=== PATIENT | male | born 2000 | race Caucasian/White ===

== ENCOUNTER 2020-07-11 07:05 | Inpatient (IN) | payer OTHER ==
[~2020-07-11] VITALS: Ht 170.2 cm; Wt 73.3 kg
[2020-07-11 09:21] LABS: HEMATOCRIT 41.1 % (42.0-52.0); HEMOGLOBIN 14.7 g/dl (13.5-17.5); MEAN CORPUSCULAR HEMOGLOBIN 31.3 pg (27.0-33.0); MEAN CORPUSCULAR HGB CONC 35.8 g/dl (32.0-36.5); MEAN CORPUSCULAR VOLUME 87.4 fl (80.0-96.0); PLATELET COUNT, AUTOMATED 292 10^3/uL (150-450); WHITE BLOOD COUNT 7.1 10^3/uL (4.0-10.0)
[2020-07-11 09:47] LABS: ACETAMINOPHEN LEVEL < 2.0 UG/ML (10.0-30.0); ALBUMIN 4.1 GM/DL (3.2-5.2); ALT/SGPT 24 U/L (12-78); BILIRUBIN,DIRECT 0.2 MG/DL (0.0-0.2); BILIRUBIN,TOTAL 0.6 MG/DL (0.2-1.0); BLOOD UREA NITROGEN 11 MG/DL (7-18); CALCIUM LEVEL 8.9 MG/DL (8.5-10.1); CARBON DIOXIDE LEVEL 29 MEQ/L (21-32); CHLORIDE LEVEL 109 MEQ/L (98-107); CREATININE FOR GFR 0.86 MG/DL (0.70-1.30); ETHYL ALCOHOL (ETHANOL) < 0.003 % (0.000-0.010); GLUCOSE, FASTING 83 MG/DL (70-100); POTASSIUM SERUM 4.5 MEQ/L (3.5-5.1); SALICYLATE LEVEL < 1.7 MG/DL (5.0-30.0); SODIUM LEVEL 142 MEQ/L (136-145); TOTAL PROTEIN 6.8 GM/DL (6.4-8.2)
[2020-07-11 09:56] LABS: AMPHETAMINES LEVEL URINE NEGATIVE (NEGATIVE); BARBITURATES URINE NEGATIVE (NEGATIVE); BENZODIAZEPINES URINE NEGATIVE (NEGATIVE); CANNABINOIDS URINE NEGATIVE (NEGATIVE); COCAINE METABOLITE URINE NEGATIVE (NEGATIVE); METHADONE URINE NEGATIVE (NEGATIVE); OPIATES URINE NEGATIVE (NEGATIVE); PHENCYCLIDINE URINE NEGATIVE (NEGATIVE)
[2020-07-11] MEDS ORDERED: traZODone 50 MG TAB PO PRN (14:00)
[2020-07-11] MEDS ORDERED: ACETAMINOPHEN TAB 650MG DOSE (2X325MG) PO PRN (14:00)
[2020-07-11] MEDS ORDERED: MAALOX 30 ML SUSP *UDC PO PRN (14:00)
[2020-07-11 17:19] VITALS: BP 115/63
[2020-07-12 06:40] VITALS: BP 114/55
--- NOTE | 2020-07-12 08:18 | MHHPEPDOC ---
[facility] History & Physical History and Physical DATE OF ADMISSION: Jul 11, 2020 at 13:54 HPI: Thomas presents today for concerns regarding his panic attacks. He noted that this was his first severe panic attack but has had others in the past. Thomas noted that this is his first time in an inpatient unit. He complains of anxiety attacks with no specific triggers. He states that he has had anxiety since he was 12 but has never brought it up because he feels that he has a good handle on it. He also complains that he has had depression in the past for weeks at a time as well as an upswing of depression. Thomas noted that he had a period of time about 5 months ago where he was energized and did things that we wouldn't otherwise do. He also noted that there are times when he does not sleep but is energized and is impulsive. The longest time with this was 2 weeks. He noted that he used to hear voices from age 12 to age 17. Thomas denies suicidal thoughts but has had suicidal attempts when he was 12-13 years old. MEDICAL HISTORY: Thomas denies any previous mental health treatment. FAMILY HISTORY: He noted that his mother has a history of bipolar depression and issues with anxiety. 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 SOCIAL HISTORY - SMOKING: He uses tobacco. Objective Appearance: Good hygiene. Affect: Midly flat, constricted. Speech: Spontaneous and Fluid. Cognition: Grossly intact. Thought Form: Linear. Logical. No signs of psychosis or other concerning though processes. Denies suicidal or homicidal ideation. Judgement: Fair. Insight: Fair. Assessment F31.9 Bipolar disorder, unspecified Plan Start Abilify 2 mg nightly. Priorities are risk for suicide to an ineffective coping plan. Estimated length of stay is 3-5 days. Vital Signs Vital Signs Date Time Temp Pulse Resp B/P (MAP) Pulse Ox O2 Delivery O2 Flow Rate FiO2 07/12/20 06:40 98.2 62 18 114/55 (74) 100 Room Air Laboratory Data 24H Labs Laboratory Tests 2 07/11/20 08:50: Nucleated Red Blood Cells % (auto) 0.0, Anion Gap 4L, Calcium Level 8.9, Total Bilirubin 0.6, Direct Bilirubin 0.2, Aspartate Amino Transf (AST/SGOT) 16, Alanine Aminotransferase (ALT/SGPT) 24, Alkaline Phosphatase 83, Total Protein 6.8, Albumin 4.1, Albumin/Globulin Ratio 1.5, Thyroid Stimulating Hormone (TSH) 2.000, Salicylates Level < 1.7L, Acetaminophen Level < 2.0L, Ethyl Alcohol Level < 0.003 07/11/20 09:05: Urine Opiates Screen NEGATIVE, Urine Methadone Screen NEGATIVE, Urine Barbiturates Screen NEGATIVE, Urine Phencyclidine Screen NEGATIVE, Urine Amphetamines Screen NEGATIVE, Urine Benzodiazepines Screen NEGATIVE, Urine Cocaine Metabolite Screen NEGATIVE, Urine Cannabinoids Screen NEGATIVE CBC/BMP Laboratory Tests 07/11/20 08:50 Medications No Active Prescriptions or Reported Meds Allergies Coded Allergies: No Known Allergies (Unverified , 07/11/20) A-FIB/CHADSVASC A-FIB History Current/History of A-Fib/PAF?: No LEONARDO ISAACS DO Jul 12, 2020 08:18
--- NOTE | 2020-07-12 16:18 | HPEPDOC ---
General Date of Admission Jul 11, 2020 at 13:54 Date of Service: Jul 12, 2020 Chief Complaint The patient is a 19-year-old male admitted with a reason for visit of Depressive Disorder. 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 I am seeing the patient for medical history and physical. He complains of having depression since the age of 12 years but never told anyone. He used to cut himself when he was younger. This time he has been feeling more and more depressed for the past few months , no interest in anything and he felt that he could start cutting himself again if he did not seek help. Home Medications No Active Prescriptions or Reported Meds Allergies Coded Allergies: No Known Allergies (Unverified , 07/11/20) Past Medical History Medical History none Family History Significant Family History: Heart disease (paternal grand father) Social History * Smoker: current smoker Alcohol: Denies Drugs: denies A-FIB/CHADSVASC A-FIB History Current/History of A-Fib/PAF?: No Review of Systems Constitutional: Denies: Chills, Fever, Night Sweats Eyes: Denies: Pain, Vision change ENT: Denies: Head Aches, Ear Pain, Dysphagia Skin: Denies: Rash, Lesions, Breakdown Pulmonary: Denies: Dyspnea, Cough Gastrointestinal: Denies: Nausea, Vomiting, Abdominal Pain, Diarrhea Genitourinary: Denies: Dysuria, Frequency, Incontinence, Retention Hematologic: Denies: Bruising, Bleeding Excessively Physical Examination General Exam: Positive: Alert, Cooperative, No Acute Distress Eye Exam: Positive: PERRLA, Conjunctiva & lids normal, EOMI; Negative: Sclera icteric ENT Exam: Positive: Atraumatic, Mucous membr. moist/pink, Pharynx Normal Neck Exam: Positive: Supple; Negative: JVD, thyromegaly Chest Exam: Positive: Clear to auscultation, Normal air movement Heart Exam: Positive: Rate Normal, Regular Rhythm, Normal S1, Normal S2; Negative: Murmurs, Rubs Abdomen Exam: Positive: Normal bowel sounds, Soft; Negative: Tenderness, Hepatospenomegaly Extremity Exam: Positive: Normal pulses; Negative: Clubbing, Cyanosis, Edema Skin Exam: Positive: Nl turgor and temperature; Negative: Breakdown, Lesion Vital Signs Vital Signs Date Time Temp Pulse Resp B/P (MAP) Pulse Ox O2 Delivery O2 Flow Rate FiO2 07/12/20 06:40 98.2 62 18 114/55 (74) 100 Room Air Assessment/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 I am seeing the patient for medical history and physical. Depression as per psychiatry No active medical issues will sign off. Plan / VTE VTE Prophylaxis Ordered?: No MIRANDA BURKS MD Jul 12, 2020 16:18
[2020-07-12 16:57] VITALS: BP_SYST 118; BP_SYST 138; BP_DIAS 63; BP_DIAS 73
[2020-07-12] MEDS: ARIPiprazole 2 MG TAB PO SCH (21:30)
[2020-07-13 06:35] VITALS: BP 116/55
[2020-07-13] MEDS: ARIPiprazole 2 MG TAB PO SCH (19:58)
[2020-07-14 06:35] VITALS: BP 125/60
[2020-07-14] MEDS ORDERED: NICOTINE 14 MG/24 HR TRANSDERMAL TD PRN (16:45)
[2020-07-14 18:30] VITALS: BP 116/63
[2020-07-14] MEDS: ARIPiprazole 2 MG TAB PO SCH (20:10)
[2020-07-15 06:27] VITALS: BP 143/73
--- NOTE | 2020-07-15 07:43 | MHDSPDOC ---
[facility] Discharge Summary Discharge Summary DATE OF ADMISSION: Jul 11, 2020 at 13:54 DATE OF DISCHARGE: Jul 15, 2020 at 13:00 DISCHARGE DIAGNOSES: F31.89 Other bipolar disorder CONSULTANTS INVOLVED:[ None (basic hospitalist screening)] REASON FOR ADMISSION & TREATMENT AND PROGRESS ON THE UNIT : Thomas was admitted to the inpatient mental health unit after presenting to the emergency room with significant depressive episodes. When he was admitted to the inpatient unit, Susan initial assessment showed that the patient suffered from a potential bipolar disorder. He has improved since being admitted into the inpatient mental health unit and was discharged at his request. Thomas was a voluntary admission. MEDICATIONS: Thomas was placed on Abilify as this would be a good treatment for both depression and bipolar. He responded favorably to 2 mg of Abilify. Thomas was well engaged, generally pleasant without any behavioral problems. DISCHARGE ASSESSMENT[improved] Legal status considerations: The patient at the time of discharge did not meet criteria for involuntary admission/extension due to having a [normal] mental status exam, [fair] insight into the situation, They are engaged in the discharge process, as well as being friendly and amenable in behavioral control and havent been engaging in any observed concerning behavior or ideation recently. They decline voluntary extension/admission at this time and must be discharged in good jose, as Im unable to make a case for holding the patient against their will. They may have historical risk factors of admissions and other interactions with psychiatry however, those are not modifiable from a clinical perspective. The patient will need to be discharged in good jose. At the time of this discharge summary, the notes from the previous weekend were not made available to this provider. MENTAL STATUS EXAMINATION ON DISCHARGE: [General: Well dressed with good hygiene Speech: Spontaneous and fluid Thought processes: Linear and logical Thought content: Future orientated Abstract reasoning, and computation: Intact Description of associations: Intact Description of abnormal or psychotic thoughts:Denies any suicidal or homicidal ideation. Denies any auditory or visual hallucinations. Does not appear to be responding to internal stimuli. Does not appear to be endorsing any bizarre or paranoid ideation. Judgment: fair Insight: fair Orientation: Alert and orientated 3 Recent and remote memory: Intact Attention span and concentration: Intact Fund of knowledge: Adequate Mood: "okay" Affect: Euthymic with a full range] PLAN/FOLLOWUP ARRANGEMENTS: Follow up appointments made (PCP and MH in 5 days of D/C date) and safety plan completed. Safety Planning aspects completed prior to discharge [Medication supplies limited to 7 days with 4 refills to prevent accumulation to OD] [RN reviewed crisis hotline information and other aspects to empower patient to access care in interim before next appointment.] The amount of time spent in the coordination of care for this patient was approximately 30 minutes. Vital Signs/I&Os Vital Signs Date Time Temp Pulse Resp B/P (MAP) Pulse Ox O2 Delivery O2 Flow Rate FiO2 07/15/20 06:27 98.8 59 16 143/73 (96) 07/14/20 18:30 100 Room Air Medications Scheduled Aripiprazole (Abilify) 2 Mg Tablet, 2 MG PO QHS for mood for 7 Days, #7 Scheduled PRN Nicotine (Nicotine Patch) 14 Mg Patch.td24, 1 PATCH TD DAILYPRN PRN for NICOTINE WITHDRAWAL for 30 Days, #30 Allergies Coded Allergies: No Known Allergies (Unverified , 07/11/20) LEONARDO ISAACS DO Jul 15, 2020 07:43
[2020-07-15] MEDS ORDERED: ABIL1TAB13 PO (08:12)
[2020-07-15] MEDS ORDERED: NICO14PA TD (08:12)
--- NOTE | 2020-08-21 15:15 | MHIPN ---
DATE: 07/14/2020 SUBJECTIVE: The patient today states that he feels that the Abilify is working. He says he slept good. He has no complaints and he has no self harm thoughts. MENTAL STATUS EXAMINATION: The patient is alert and oriented x3, pleasant and cooperative, fairly spontaneous. Eye contact is good. There is no formal thought disorder noted. Mood is better and affect is appropriate. He is not psychotic, suicidal, homicidal. Concentration is good. Insight and judgment good. DIAGNOSIS: Bipolar disorder, unspecified. TREATMENT PLAN: At this point we will continue to monitor the patient's stabilization of his mood and we will continue to titrate medication as indicated. SANDRA
== END 2020-07-15 13:00 | disposition home or self-care (01) | DRG 885 ==
LOC: M ED 07:05 → M ED INP 13:54 → M PSY 14:43
PROVIDERS: ADMIT Psychiatry & Neurology Addiction Medicine; ATTEND Psychiatry & Neurology Addiction Medicine
DX: F31.89 Other bipolar disorder (principal); R45.851 Suicidal ideations